=== PATIENT | male | born 1955 ===

== ENCOUNTER 2021-11-25 05:40 | Day surgery (SDC) | payer OTHER | END 2021-11-25 11:50 | disposition home or self-care (01) | LOC: AMB-ENDOS 05:40 | PROVIDERS: ATTEND Colon & Rectal Surgery | DX: D12.3 Benign neoplasm of transverse colon (principal); Z20.822 Contact with and (suspected) exposure to COVID-19 ==

== ENCOUNTER 2022-11-17 06:22 | Day surgery (SDC) | payer OTHER | END 2022-11-17 13:40 | disposition home or self-care (01) | LOC: AMB-ENDOS 06:22 | PROVIDERS: ATTEND Colon & Rectal Surgery | DX: D12.2 Benign neoplasm of ascending colon (principal); D12.3 Benign neoplasm of transverse colon; K63.89 Other specified diseases of intestine; K57.30 Diverticulosis of large intestine without perforation or abscess without bleeding; K64.8 Other hemorrhoids; Z20.822 Contact with and (suspected) exposure to COVID-19 ==